=== PATIENT | female | born 2000 | race Caucasian/White ===

== ENCOUNTER 2023-12-13 20:26 | Emergency (ER) | payer OTHER, SELFPAY ==
[2023-12-13 20:53] VITALS: BP 109/55; PULSE 75; RESP 16; TEMP 36.8; O2SAT 99; BMI 31.8
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
--- NOTE | 2023-12-13 22:37 | EKG_ITS ---
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
[2023-12-13 22:50] VITALS: BP 105/54; PULSE 58; RESP 16; O2SAT 99
== END 2023-12-13 22:51 | disposition home or self-care (01) ==
PROVIDERS: Emergency Provider Emergency Medicine
DX: S80.12XA Contusion of left lower leg, initial encounter (principal); M25.512 Pain in left shoulder; M25.511 Pain in right shoulder; R42 Dizziness and giddiness; I95.9 Hypotension, unspecified; V18.0XXA Pedal cycle driver injured in noncollision transport accident in nontraffic accident, initial encounter; Y93.55 Activity, bike riding
CPT/HCPCS: 93005; 99281; 99282